=== PATIENT | female | born 1960 | race Asian ===

== ENCOUNTER 2018-01-17 13:35 | Day surgery (SDC) | payer OTHER ==
[2018-01-17] MEDS ORDERED: FENTAnyl 50 MCG/ML VIAL (15:54)
[2018-01-17] MEDS ORDERED: MIDAZOLAM 1 MG/ML 2 ML INJ ×2 (15:55)
== END 2018-01-17 16:46 | disposition home or self-care (01) ==
LOC: GIL 13:35
DX: Z12.11 Encounter for screening for malignant neoplasm of colon (principal); K62.1 Rectal polyp; K57.90 Diverticulosis of intestine, part unspecified, without perforation or abscess without bleeding; I10 Essential (primary) hypertension
CPT/HCPCS: 45380; 88305